=== PATIENT | female | born 1990 | race Caucasian/White ===

== ENCOUNTER 2025-03-26 08:53 | Emergency (ER) | payer OTHER, SELFPAY ==
[2025-03-26] VITALS (14 sets, daily range): BP systolic 132–144; BP diastolic 91–96; PULSE 73–91; TEMP 37.2; O2SAT 90–100; BMI 30.4
--- OUTSIDE RECORDS SUMMARY | 2025-03-26 09:04 | XMS_ITS | Encounter Summary ---
Author Organization [facility] Address [address] [facility] [place] [address] Care Team Providers Care Balance Wheel Facer Name Role Phone Suzanna Ashraf MD Primary Care Provider [phone] Reason for Visit * Reason Comments Med Refill Encounter Details Date Type Department Care Team (Late Contact Info) Description 02/04/2024 Refill [facility] [address] [place] [phone] Makenna Mcclain NP [address] [place] [address] Primary hypertension Social History Tobacco Use Types Packs/Day Years Used Date Smoking Tobacco: Every Day Cigarettes Smokeless Tobacco: Never Comments:11-20 cigs/day Alcohol Use Standard Drinks/Week Comments Yes 6 (1 standard drink = 0.6 oz pure alcohol) Caffeine intake: 1-2 cups per day soda/pop PHQ-2 Answer Date Recorded Patient Health Questionnaire-2 Score 0 04/04/2023 Comments Unknown Sex and Gender Information Value Date Recorded Sex Assigned at Not on file Legal Sex Female 7:03 PM EDT Gender Identity Not on file Sexual Orientation Not on file documented as of this encounter Plan of Treatment Upcoming Encounters Date Type Department Care Team (Late Contact Info) Description 04/15/2025 11:00 AM EDT Procedure Visit [facility] [address] [facility] [place] [phone] Kinjal Nguyen PA [address] [facility] [place] [address] documented as of this encounter Visit Diagnoses Diagnosis Primary hypertension Unspecified essential hypertension documented in this encounter Care Teams Balance Wheel Facer Relationship Specialty Start Date End Date Suzanna Ashraf MD [address] [place] [address] PCP - General Family Medicine 10/30/22 documented as of this encounter
--- OUTSIDE RECORDS SUMMARY | 2025-03-26 09:04 | XMS_ITS | Encounter Summary ---
Author Organization [facility] Address [address] [place] [address] Care Team Providers Care Innovation Manager Name Role Phone Suzanna Ashraf MD Primary Care Provider [phone] Reason for Visit * Reason Comments Med Refill Encounter Details Date Type Department Care Team (Late st Contact Info) Description 06/25/2023 Refill [facility] [address] [place] [address] Ca George NP [address] [phone] Primary hypertension Social History Tobacco Use Types [...] on file documented as of this encounter Miscellaneous Notes * Telephone Encounter - Ca George NP - 06/25/2023 11:17 AM EST Sent. documented in this encounter Plan of Treatment Upcoming Encounters Date Type Department Care Team (Late st Contact Info) Description 04/15/2025 11:00 AM EDT Procedure Visit [facility] [address] [place] [address] Kinjal Nguyen PA [address] [facility] [place] [address] documented as of this encounter Visit Diagnoses Diagnosis Primary hypertension Unspecified essential hypertension documented in this encounter Care Teams Innovation Manager Relationship Specialty Start Date End Date Suzanna Ashraf MD [address] [place] [address] PCP - General Family Medicine 10/30/22 documented as of this encounter
--- OUTSIDE RECORDS SUMMARY | 2025-03-26 09:04 | XMS_ITS | Clinical Summary ---
Author Organization [facility] Address [address] [place] [address] Care Team Providers Care Sheep Killer Name Role Phone Suzanna Ashraf MD Primary Care Provider [phone] Allergies No known active allergies Medications Levonorgestrel (Mirena, 52 MG,) 20 MCG/DAY intrauterine device Mirena Active LORazepam (Ativan) 0.5 MG tabletIndication s:Generalized anxiety disorder,Current moderate episode of major depressive disorder without prior episode (HCC) Take 1 tablet (0.5 mg) by mouth 2 (two) times a day as needed for anxiety for up to 5 days 10 tablet 12/03/19 25 Active lisinopril 20 MG tabletIndication s:Primary hypertension TAKE 1 TABLET(20 MG) BY MOUTH DAILY AT THE SAME TIME 90 tablet 1 03/06/20 25 Active FLUoxetine (PROzac) 40 MG capsuleIndicatio ns:Generalized anxiety disorder TAKE 1 CAPSULE(40 MG) BY MOUTH DAILY 90 capsule 03/06/20 25 Active lisinopril 20 MG tabletIndication s:Primary hypertension TAKE 1 TABLET(20 MG) BY MOUTH DAILY AT THE SAME TIME 90 tablet 1 09/08/19 25 025 Discontinued FLUoxetine (PROzac) 40 MG capsuleIndicatio ns:Generalized anxiety disorder Take 1 capsule (40 mg) by mouth Daily 90 capsule 12/03/19 25 025 Discontinued Active Problems Problem Noted Date Diagnosed Date Alcohol abuse 03/29/2023 Anxiety disorder, unspecified 03/29/2023 Local infection of the skin and subcutaneous tissue, unspecified 03/29/2023 Major depressive disorder, single episode, unspe cified 03/29/2023 Smoker 03/29/2023 Primary hypertension 12/27/2022 Encounters Date Type Department Care Team Description 03/06/[address] [facility] [address] [facility] [place] [address] Makenna Mcclain NP Primary hypertension ; Generalized anxiety disorder 02/01/[address] [facility] [address] [facility] [phone] Suzanna Ashraf MD 01/29/[address] [facility] [address] [facility] [address] Suzanna Ashraf MD 01/27/[address] [facility] [address] [facility] [place] [address] Suzanna Ashraf MD FMLA 01/21/[address] [facility] [address] [facility] [place] [address] Suzanna Ashraf MD 12/28/[address] [facility] [address] [facility] [place] [address] Suzanna Ashraf MD 12/24/[address] [facility] [address] [facility] [address] Suzanna Ashraf MD FMLA from Last 3 Months Family History Medical History Relation Name Comments Heart attack Father Hypertension Father CVA Other Stroke Other Relation Name Status Comments Daughter Alive Father Alive Mother Alive Other family hx Social History Tobacco Use Types Packs/Day Years Used Date Smoking Tobacco: Former Cigarettes Smokeless Tobacco: Never Tobacco Cessation:Counseling Given: Not Answered Comments:Vapes daily Alcohol Use Standard Drinks/Week Comments Yes 6 (1 standard drink = 0.6 oz pure alcohol) Caffeine intake: 1-2 cups per day soda/pop PHQ-2 Answer Date Recorded Patient Health Questionnaire-2 Score 4 12/02/2024 Comments Unknown Sex and Gender Information Value Date Recorded Sex Assigned at Not on file Legal Sex Female 7:03 PM EDT Gender Identity Not on file Sexual Orientation Not on file Last Filed Vital Signs Vital Sign Reading Time Taken Comments Blood Pressure 118/70 12/02/2024 3:42 PM EDT Pulse 100 12/02/2024 3:42 PM EDT Temperature 36.1 C (96.9 F) 04/04/2023 3:39 PM EDT Respiratory Rate - - Oxygen Saturation 99% 12/02/2024 3:42 PM EDT Inhaled Oxygen Concentration - - Weight 61.3 kg (135 lb 3.2 oz) 12/02/2024 3:42 P M EDT Height 140.3 cm (4' 7.25 ) 12/02/2024 3:42 PM ED T Body Mass Index 31.14 12/02/2024 3:42 PM EDT Plan of Treatment Upcoming Encounters Date Type Department Care Team (Late st Contact Info) Description 04/15/2025 11:00 AM EDT Procedure Visit [facility] [address] [facility] [place] [phone] Kinjal Nguyen PA [address] [facility] [place] [address] Health Maintenance Due Date Last Done Comments Pap Smear 2009 Cervical Cancer Screening 2018 HPV/Cotest 2018 Influenza Vaccine (#1) 2025 Insurance [employer] Care Teams Sheep Killer Relationship Specialty Start Date End Date Suzanna Ashraf MD [address] [place] [address] PCP - General Family Medicine 10/30/22
--- OUTSIDE RECORDS SUMMARY | 2025-03-26 09:04 | XMS_ITS | Encounter Summary ---
Author Organization [facility] Address [address] [facility] [place] [address] Care Team Providers Care Director Supply Name Role Phone Suzanna Ashraf MD Primary Care Provider [phone] Encounter Details Date Type Department Care Team (Late st Contact Info) Description 02/01[facility]2025 [facility] [address] [place] [phone] Suzanna Ashraf MD [address] [place], [place] [phone] Social History Tobacco Use Types Packs/Day Years Used Date Smoking Tobacco: Former Cigarettes Smokeless Tobacco: Never Comments:Vapes daily Alcohol Use Standard Drinks/Week Comments [...] 11:00 AM EDT Procedure Visit [facility] [address] [place] [address] Kinjal Nguyen PA [address] [place], [place] [phone] documented as of this encounter Visit Diagnoses Not on filedocumented in this encounter Additional Health Concerns Assessment Noted Time PHQ-9 Depression Total Score: 11 025 3:00 PM EDT documented as of this encounter Care Teams Director Supply Relationship Specialty Start Date End Date Suzanna Ashraf MD [address] [place] [address] PCP - General Family Medicine 10/30/22 documented as of this encounter
--- NOTE | 2025-03-26 09:07 | ECG_ITS ---
[facility] Test Date: 2025-03-26 Pat Name: TABITHA BRIGGS Department: Room: - Gender: Female Safety Instruction Police Officer: : 1990 Requested By: [id number] Order Number: [id number] Reading MD: CHUCK PRUETT M.D. Measurements Intervals [place] Rate: 88 P: 55 [place]: 150 QRS: 53 QRSD: 76 T: 31 QT: 334 QTc: 379 Interpretive Statements 1100 Sinus rhythm 4068 Nonspecific Twave abnormality 9130 borderline ECG No previous ECG available for comparison Electronically Signed On 03-26-2025 18:46:24 EDT by CHUCK PRUETT M.D.
--- NOTE | 2025-03-26 09:07 | XR_ITS ---
[address] [address] Patient Name: TABITHA BRIGGS MRN: [id number] date: 1990 Sex: F Assigned Patient Location: ED.MAIN Current Patient Location: ED.MAIN Accession/Order Number: [id number] Exam Date: 03/26/2025 09:08 Report Date: 03/26/2025 09:36 At the request of: GIN CADENA MD Procedure: XR chest 1V XR chest 1V 03/26/2025 9:13 AM SIGNS AND SYMPTOMS: ^cp PROTOCOL: Frontal radiograph of the chest COMPARISON: None FINDINGS: The trachea is midline. The heart and mediastinal structures are within normal limits. The lung parenchyma is clear. The bony thorax is intact. XR/XR chest 1V IMPRESSION: No acute cardiopulmonary pathology. Impression dictated by: Steve Ivey M.D. 03/26/2025 9:36 AM Dictation Location: [place] [address] Electronically authenticated by: [id number] Y Date: 03/26/2025 09:36
[2025-03-26 09:30] LABS: Hematocrit 41.5 % (36.0-48.0); Hemoglobin 14.1 g/dL (12.0-16.0); Immature Granulocytes Abs Auto 0.02 10^3/uL (0.00-0.03); Immature Granulocytes Pct Auto 0.2 % (0.0-0.5); Lymphocytes Absolute Auto 0.8 10^3/uL (1.2-3.8); Mean Corpuscular HGB Conc 34.0 g/dL (29.9-35.2); Mean Corpuscular Hemoglobin 31.5 pg (26.7-34.0); Mean Corpuscular Volume 92.6 fL (81.0-99.0); Platelet Count 238 10^3/uL (150-450); Red Blood Count 4.48 10^6/uL (4.20-5.40); White Blood Count 9.4 10^3/uL (4.0-11.0)
[2025-03-26 09:48] LABS: Alanine Aminotransferase 23 U/L (14-59); Albumin Globulin Ratio 1.0; Albumin Level 3.8 g/dL (3.4-5.0); Alkaline Phosphatase 58 U/L (46-116); Anion Gap 12.8; Aspartate Amino Transferase 12 U/L (15-37); Blood Urea Nitrogen 7.0 mg/dL (7.0-18.0); Calcium 9.1 mg/dL (8.5-10.1); Carbon Dioxide 28.3 mmol/L (21.0-32.0); Chloride 101 mmol/L (98-107); Estimated GFR (African America >60 (>=60 mL/min/1.73m^2); Estimated GFR (Non-African Ame >60 (>=60 mL/min/1.73m^2); Globulin 3.9 g/dL; Glucose 86 mg/dL (74-106); Potassium 3.1 mmol/L (3.5-5.1); Sodium 139 mmol/L (136-145); Total Protein 7.7 g/dL (6.4-8.2)
[2025-03-26] MEDS: KETOROLAC TROMETHAMINE 30 MG/ML VIAL 15 MG IVP (10:28)
--- NOTE | 2025-03-26 10:32 | ED_ITS ---
HPI - Chest Pain General Chief Complaint: Chest Pain Stated Complaint: CHEST PAIN Time Seen by Provider: 03/26/25 09:07 Source: patient and family Mode of arrival: walk-in Limitations: no limitations History of Present Illness HPI narrative: The patient is come to the ER with a left upper chest pain that comes for few seconds and resolved by itself, she does not have it present at the moment although she feels that at certain position or taking deep breaths sometimes the pain, patient apparently had an episode of vomiting since last night as well as diarrhea yesterday which she thought was secondary to gastroenteritis after eating some bad food The patient denies any diarrhea today she does not have any nausea at the moment No fever no chills no cough Related Data Previous Rx's ?Medication ?Instructions ?Recorded diclofenac sodium 75 mg 75 mg PO Q12H PRN pain #10 t abs 03/26/25 tablet,delayed release Allergies Allergy/AdvReac Type Severity Reaction Status Date / Time No Known Drug Allergies Allergy Verified 03/26/25 09:00 Review of Systems ROS Status of ROS 10 or more systems reviewed and unremark able except as noted in history and below PFSH PFSH Social History Little interest or pleasure in doing things: not at all Feeling down, depressed, or hopeless: not at all Exam Narrative Exam Narrative: Nurses notes and vital signs reviewed and patient is not hypoxic. General: Well-appearing and in no apparent distress. Skin: Warm, dry, no pallor noted. No rash. Head: Normocephalic, atraumatic. Neck: Supple, non-tender. Cardiovascular: Regular Rate and Rhythm without murmur, gallop or rub. Respiratory: No accessory muscle use or respiratory distress. Lungs are clear to auscultation, no wheezing, rales or rhonchi Chest Wall: no tenderness Back: No midline thoracic or lumbar vertebral tenderness. No CVA tenderness Musculoskeletal: normal ROM, no calf or popliteal tenderness, no lower extremity edema/swelling GI: Abdomen is soft, non-distended. Normal bowel sounds. No masses appreciated. No tenderness to palpation. No rebound, guarding, or rigidity noted. Neurological: A&O x4. No cranial nerve dysfunction observed. No truncal ataxia. Moves all extremities. Sensation intact. Psychiatric: Cooperative and interactive. Normal mood and affect. Constitutional Vital Signs, click to edit/add: Last Vital Signs Temp 98.9 F 03/26/25 09:08 Pulse 75 03/26/25 10:40 Resp 20 03/26/25 10:40 BP 132/91 03/26/25 10:38 Pulse Ox 90 L 03/26/25 10:40 O2 Del Method Room Air 03/26/25 09:08 Course Vital Signs Vital signs: Vital Signs Pulse Oximetry 100 03/26/25 08:59 Temperature 98.9 F 03/26/25 09:08 Pulse Rate 75 03/26/25 10:40 Respiratory Rate 20 03/26/25 10:40 Blood Pressure 132/91 03/26/25 10:38 Pulse Oximetry 90 L 03/26/25 10:40 Oxygen Delivery Method Room Air 03/26/25 09:08 MDM - Chest Pain MDM Narrative Medical decision making narrative: The EKG showing sinus rhythm with a heart rate of [address] elevation or depres stu Chest x-ray showed no acute pathology CBC and chemistry showed no acute pathology except for mild hypokalemia which is mostly secondary to the fact that the patient was having diarrhea since , as long as the patient started hydrating and go back to regular diet the patient will have her potassium repleted And she was informed of the results of the blood workup The patient troponin was negative With no other no suspicion for PE Patient was discharged after she was started on Toradol discharged home with Radha The patient is to follow up with primary care physician in next 2-3 days or to return to the emergency department should any of the signs or symptoms worsen or new symptoms develop. The patient agrees with the following Diagnosis and Treatment plan and the patient will be discharged home. Lab Data Labs: Lab Results 03/26/25 Range/Units 09:03 WBC 9.4 (4.0-11.0) 10^3/uL RBC 4.48 (4.20-5.40) 10^6/uL Hgb 14.1 (12.0-16.0) g/dL Hct 41.5 (36.0-48.0) % MCV 92.6 (81.0-99.0) fL MCH 31.5 (26.7-34.0) pg MCHC 34.0 (29.9-35.2) g/dL RDW 13.7 (11.0-15.0) % Plt Count 238 (150-450) 10^3/uL MPV 9.9 (9.5-13.5) fL Neut % (Auto) 83.3 H (43.0-75.0) % Lymph % (Auto) 8.8 L (20.5-60.0) % [place] % (Auto) 6.1 (1.7-12.0) % Eos % (Auto) 1.4 (0.9-7.0) % Baso % (Auto) 0.2 (0.2-2.0) % Neut # (Auto) 7.8 H (1.4-6.5) 10^3/uL Lymph # (Auto) 0.8 L (1.2-3.8) 10^3/uL [place] # (Auto) 0.6 (0.3-0.8) 10^3/uL Eos # (Auto) 0.1 (0.0-0.7) 10^3/uL Baso # (Auto) 0.0 (0.0-0.1) 10^3/uL Abs Immat Gran (auto) 0.02 (0.00-0.03) 10^3/uL Imm/Tot Granulo (auto) 0.2 (0.0-0.5) % Sodium 139 (136-145) mmol/L Potassium 3.1 L (3.5-5.1) mmol/L Chloride 101 (98-107) mmol/L Carbon Dioxide 28.3 (21.0-32.0) mmol/L Anion Gap 12.8 BUN 7.0 (7.0-18.0) mg/dL Creatinine 0.60 (0.55-1.02) mg/dL Est GFR ( Amer) >60 (>=60 mL/min/1.73m^2) Est GFR (Non-Af Amer) >60 (>=60 mL/min/1.73m^2) BUN/Creatinine Ratio 11.7 Glucose 86 (74-106) mg/dL Calcium 9.1 (8.5-10.1) mg/dL Total Bilirubin 0.6 (0.2-1.0) mg/dL AST 12 L (15-37) U/L ALT 23 (14-59) U/L Alkaline Phosphatase 58 (46-116) U/L Troponin I High Sens <4.0 L (4.0-51.3) pg/mL Total Protein 7.7 (6.4-8.2) g/dL Albumin 3.8 (3.4-5.0) g/dL Globulin 3.9 g/dL Albumin/Globulin Ratio 1.0 Serum HCG, Qual Negative (NEGATIVE) Discharge Plan Discharge Chief Complaint: Chest Pain Clinical Impression: Atypical chest pain Patient Disposition: Home, Self-Care Time of Disposition Decision: 10:31 Condition: Good Prescriptions / Home Meds: New diclofenac sodium 75 mg tablet,delayed release (DR/EC) 75 mg PO Q12H PRN (Reason: pain) Qty: 10 0RF Print Language: Korean Instructions: Noncardiac Chest Pain (ED) Additional Instructions: Please take your medication with food The patient is to follow up with primary care physician in next 2-3 days or to return to the emergency department should any of the signs or symptoms worsen or new symptoms develop. The patient agrees with the following Diagnosis and Treatment plan and the patient will be discharged home. Referrals: CHANA MAYEN [Primary Care Provider, Family Practice] - 1 week Discharge Date/Time: 03/26/25 10:51
== END 2025-03-26 10:51 | disposition home or self-care (01) ==
PROVIDERS: Emergency Provider Emergency Medicine; PCP Family Medicine
DX: R07.89 Other chest pain (principal)
CPT/HCPCS: 36415; 71045; 80053; 84484; 84703; 85025; 93005; 96374; 99285; J1885